=== PATIENT | male | born 1960 | race Caucasian/White ===

== ENCOUNTER → 2016-08-11 | Outpatient (CLI) | payer MEDICARE, MEDICAID ==
[~2016-08-11] MED LIST: ADVAIR 250/501 EA INH; ANAPROX DS550 MG PO; ARTHRITIS MED; EPI-PEN1 MG/ML MR; LASIX20 MG PO; MOTRIN800 MG PO; PREDNISONE20 M1 PO; PROAIR HFA0.09 MG/AC; ROBAXIN500 MG PO; SKELAXIN800 M1 PO; STOMACH MED; TRAMADOL HCL50 MG PO; VICO75300 PO; VOLTAREN50 M1 PO
== END | disposition home or self-care (01) ==
LOC: RAD 15:07
DX: M81.0 Age-related osteoporosis without current pathological fracture (principal); M25.552 Pain in left hip; M25.572 Pain in left ankle and joints of left foot

== ENCOUNTER 2016-08-16 16:27 | Emergency (ER) | payer MEDICARE, MEDICAID ==
[~2016-08-16] VITALS: Ht 175.2 cm; Wt 59.0 kg
[~2016-08-16 16:27] MED LIST changes: -PREDNISONE20 M1 PO; -SKELAXIN800 M1 PO
[2016-08-16 17:18] LABS: BASO % 0.4 % (0.0-1.0); EOS # 0.1 10*3/uL (0.0-0.4); EOS % 1.4 % (1.0-4.0); HEMATOCRIT 35.6 % (42.0-52.0); HEMOGLOBIN 12.2 g/dl (14.0-18.0); LYMPH # 2.2 10*3/uL (1.3-4.4); LYMPH % 24.4 % (27.0-41.0); MEAN CELL VOLUME 87.3 fl (80.0-94.0); MEAN CORPUSCULAR HGB 29.9 pg (27.0-31.0); MEAN CORPUSCULAR HGB CONC 34.3 g/dl (33.0-37.0); MEAN PLATELET VOLUME 9.3 fl (9.6-12.3); MONO # 0.8 10*3/uL (0.1-1.0); MONO % 8.9 % (3.0-9.0); NEUT # 5.8 10*3/uL (2.3-7.9); NEUT % 64.7 % (47.0-73.0); PLATELET COUNT AUTOMATED 211 10*3/uL (130-400); RED BLOOD COUNT 4.08 10*6/uL (4.50-5.90); RED CELL DISTRI WIDTH 13.1 % (0-14.5)
[2016-08-16 17:32] LABS: ALBUMIN 3.7 gm/dl (3.1-4.5); ALKALINE PHOSPHATASE 62 U/L (45-117); BILIRUBIN, TOTAL 0.4 mg/dl (0.2-1.0); BUN 14 mg/dl (7-24); C-REACTIVE PROTEIN 4.93 MG/DL (0-0.3); CARBON DIOXIDE 26 mmol/L (21-32); CHLORIDE 97 mmol/L (98-107); EST GLOM FILT AFRICAN AMERICAN > 60 ml/min; GLUCOSE 72 mg/dL (65-99); POTASSIUM 4.2 mmol/L (3.5-5.1); SGOT/AST 47 IU/L (3-35); SGPT/ALT 101 U/L (12-78); SODIUM 133 mmol/L (136-145); TOTAL PROTEIN 7.7 gm/dL (6.4-8.2)
[2016-08-16] MEDS ORDERED: PREDNISONE20 M1 PO (19:47)
[2016-08-16] MEDS ORDERED: SKELAXIN800 M1 PO (19:47)
== END 2016-08-16 20:06 | disposition home or self-care (01) ==
LOC: ED 16:27
PROVIDERS: Internal Medicine
DX: M50.320 Other cervical disc degeneration, mid-cervical region, unspecified level (principal); M54.32 Sciatica, left side; M51.36 Other intervertebral disc degeneration, lumbar region; F17.200 Nicotine dependence, unspecified, uncomplicated

== ENCOUNTER → 2016-08-18 | Outpatient (CLI) | payer MEDICARE, MEDICAID ==
[~2016-08-18] MED LIST changes: +PREDNISONE20 M1 PO; +SKELAXIN800 M1 PO
== END | disposition home or self-care (01) ==
LOC: RAD 03:06
DX: M81.0 Age-related osteoporosis without current pathological fracture (principal); M25.552 Pain in left hip; E55.9 Vitamin D deficiency, unspecified; Z85.828 Personal history of other malignant neoplasm of skin; Z87.891 Personal history of nicotine dependence

== ENCOUNTER 2016-12-08 09:49 | Emergency (ER) | payer MEDICARE, MEDICAID ==
[~2016-12-08] VITALS: Ht 175.2 cm; Wt 62.1 kg
[2016-12-08] MEDS ORDERED: OMEPRAZOLE D/R20 MG PO (09:58)
[2016-12-08] MEDS ORDERED: TRAMADOL HCL50 MG PO (09:59)
[2016-12-08] MEDS ORDERED: ACETAMINOPHEN-H1 TA2 PO (09:59)
[2016-12-08] MEDS ORDERED: ZESTRIL10 MG PO (10:00)
[2016-12-08] MEDS ORDERED: LASIX40 MG PO (10:00)
[2016-12-08] MEDS ORDERED: LODINE400 M1 PO (10:01)
[2016-12-08 10:19] LABS: BASO % 0.4 % (0.0-1.0); EOS # 0.1 10*3/uL (0.0-0.4); EOS % 0.9 % (1.0-4.0); HEMATOCRIT 38.1 % (42.0-52.0); HEMOGLOBIN 12.3 g/dl (14.0-18.0); LYMPH # 2.3 10*3/uL (1.3-4.4); LYMPH % 23.3 % (27.0-41.0); MEAN CELL VOLUME 91.6 fl (80.0-94.0); MEAN CORPUSCULAR HGB 29.6 pg (27.0-31.0); MEAN CORPUSCULAR HGB CONC 32.3 g/dl (33.0-37.0); MEAN PLATELET VOLUME 9.3 fl (9.6-12.3); MONO # 0.6 10*3/uL (0.1-1.0); MONO % 6.1 % (3.0-9.0); NEUT # 6.7 10*3/uL (2.3-7.9); PLATELET COUNT AUTOMATED 255 10*3/uL (130-400); RED BLOOD COUNT 4.16 10*6/uL (4.50-5.90); RED CELL DISTRI WIDTH 13.2 % (0-14.5); WHITE BLOOD COUNT 9.7 10*3/uL (4.8-10.8)
[2016-12-08 10:25] LABS: BILIRUBIN NEGATIVE (NEGATIVE); BLOOD NEGATIVE (NEGATIVE); CLARITY SL CLOUDY (CLEAR); COLOR YELLOW (YELLOW); GLUCOSE NEGATIVE (NEGATIVE); KETONE NEGATIVE (NEGATIVE); LEUKO ESTERASE NEGATIVE (NEGATIVE); NITRITE NEGATIVE (NEGATIVE); PROTEIN NEGATIVE (NEGATIVE); UROBILINOGEN 0.2 E.U./dl (0.2-1.0)
[2016-12-08 10:34] LABS: ALBUMIN 3.4 gm/dl (3.1-4.5); ALKALINE PHOSPHATASE 73 U/L (45-117); BILIRUBIN, TOTAL 0.4 mg/dl (0.2-1.0); BUN 11 mg/dl (7-24); CARBON DIOXIDE 27 mmol/L (21-32); CHLORIDE 103 mmol/L (98-107); EST GLOM FILT AFRICAN AMERICAN > 60 ml/min; GLUCOSE 101 mg/dL (65-99); POTASSIUM 4.1 mmol/L (3.5-5.1); SGOT/AST 23 IU/L (3-35); SGPT/ALT 21 U/L (12-78); SODIUM 139 mmol/L (136-145); TOTAL PROTEIN 7.3 gm/dL (6.4-8.2)
[2016-12-08 10:36] LABS: EPITHELIAL CELLS 0-2; URINE REFLEX COMMENT NO (NO); WBC 0-2 wbc/hpf (0-5)
[2016-12-08] MEDS ORDERED: PREDNISONE20 M1 PO (12:50)
[2016-12-08] MEDS ORDERED: CYCLOBENZAPRINE10 MG PO (12:50)
== END 2016-12-08 13:59 | disposition home or self-care (01) ==
LOC: ED 09:49
PROVIDERS: Registered Nurse
DX: M54.16 Radiculopathy, lumbar region (principal); F17.210 Nicotine dependence, cigarettes, uncomplicated; Z79.899 Other long term (current) drug therapy; Z98.890 Other specified postprocedural states

== ENCOUNTER → 2017-03-15 | Outpatient (CLI) | payer MEDICARE, MEDICAID ==
[~2017-03-15] MED LIST changes: +ACETAMINOPHEN-H1 TA2 PO; +CYCLOBENZAPRINE10 MG PO; +LASIX40 MG PO; +LODINE400 M1 PO; +OMEPRAZOLE D/R20 MG PO; +ZESTRIL10 MG PO
== END | disposition home or self-care (01) ==
LOC: RAD 09:42
DX: M47.817 Spondylosis without myelopathy or radiculopathy, lumbosacral region (principal); M43.16 Spondylolisthesis, lumbar region; M48.06 Spinal stenosis, lumbar region; M41.86 Other forms of scoliosis, lumbar region

== ENCOUNTER → 2017-05-31 | Outpatient (CLI) | payer MEDICARE, MEDICAID ==
[2017-05-31 10:53] LABS: BASO % 0.5 % (0.0-1.0); EOS # 0.1 10*3/uL (0.0-0.4); EOS % 1.2 % (1.0-4.0); HEMATOCRIT 38.2 % (42.0-52.0); HEMOGLOBIN 12.5 g/dl (14.0-18.0); LYMPH # 1.6 10*3/uL (1.3-4.4); LYMPH % 22.2 % (27.0-41.0); MEAN CELL VOLUME 90.5 fl (80.0-94.0); MEAN CORPUSCULAR HGB 29.6 pg (27.0-31.0); MEAN CORPUSCULAR HGB CONC 32.7 g/dl (33.0-37.0); MEAN PLATELET VOLUME 9.5 fl (9.6-12.3); MONO # 0.6 10*3/uL (0.1-1.0); PLATELET COUNT AUTOMATED 230 10*3/uL (130-400); RED BLOOD COUNT 4.22 10*6/uL (4.50-5.90); RED CELL DISTRI WIDTH 13.4 % (0-14.5); WHITE BLOOD COUNT 7.4 10*3/uL (4.8-10.8)
[2017-05-31 11:28] LABS: ALBUMIN 3.6 gm/dl (3.1-4.5); ALKALINE PHOSPHATASE 63 U/L (45-117); BUN 9 mg/dl (7-24); CHLORIDE 103 mmol/L (98-107); CHOLESTEROL 191 mg/dL (<200); CREATININE 0.91 mg/dL (0.70-1.30); HDL CHOLESTEROL 59 mg/dl (40-60); LDL CHOLESTEROL 116 mg/dL (9-159); POTASSIUM 4.6 mmol/L (3.5-5.1); SGOT/AST 21 IU/L (3-35); SGPT/ALT 28 U/L (12-78); SODIUM 137 mmol/L (136-145); TOTAL PROTEIN 7.5 gm/dL (6.4-8.2); TRIGLYCERIDES 79 mg/dl (<150); VLDL CHOLESTEROL 16 mg/dL (6-40)
[2017-05-31 11:35] LABS: THYROID STIM HORMONE (HS) 0.805 uIU/ml (0.358-4.75)
== END ==
LOC: LAB 10:36
PROVIDERS: Internal Medicine
DX: Z12.5 Encounter for screening for malignant neoplasm of prostate (principal); I10 Essential (primary) hypertension; E78.00 Pure hypercholesterolemia, unspecified; R35.1 Nocturia

== ENCOUNTER 2019-12-06 14:58 | Inpatient (IN) | payer MEDICARE ==
[~2019-12-06] VITALS: Ht 175.3 cm; Wt 62.4 kg
[~2019-12-06 14:58] MED LIST changes: -PROAIR HFA0.09 MG/AC; +PROAIR HFA8.5 GM INH
[2019-12-06 15:14] VITALS: BP 148/76
--- NOTE | 2019-12-06 16:00 | NUR ---
PT RESTING IN BED WITH NO ACUTE DISTRESS
[2019-12-06 16:29] LABS: ALBUMIN 3.6 gm/dl (3.1-4.5); ALKALINE PHOSPHATASE 79 U/L (45-117); BUN 11 mg/dl (7-24); CHLORIDE 93 mmol/L (98-107); CREATININE 0.59 mg/dL (0.70-1.30); POTASSIUM 4.1 mmol/L (3.5-5.1); SGOT/AST 24 IU/L (3-35); SGPT/ALT 32 U/L (12-78); SODIUM 128 mmol/L (136-145); TOTAL PROTEIN 7.5 gm/dL (6.4-8.2)
[2019-12-06 17:00] LABS: BASO # 0.1 10*3/uL (0.0-0.1); BASO % 0.7 % (0.0-1.0); EOS # 0.3 10*3/uL (0.0-0.4); EOS % 2.9 % (1.0-4.0); HEMATOCRIT 36.3 % (42.0-52.0); LYMPH # 1.9 10*3/uL (1.3-4.4); LYMPH % 21.3 % (27.0-41.0); MEAN CELL VOLUME 85.6 fl (80.0-94.0); MEAN CORPUSCULAR HGB 29.2 pg (27.0-31.0); MEAN CORPUSCULAR HGB CONC 34.2 g/dl (33.0-37.0); MEAN PLATELET VOLUME 9.7 fl (9.6-12.3); MONO # 0.8 10*3/uL (0.1-1.0); MONO % 8.8 % (3.0-9.0); NEUT # 5.9 10*3/uL (2.3-7.9); NEUT % 66.1 % (47.0-73.0); PLATELET COUNT AUTOMATED 272 10*3/uL (130-400); RED BLOOD COUNT 4.24 10*6/uL (4.50-5.90); RED CELL DISTRI WIDTH 12.7 % (0-14.5)
--- NOTE | 2019-12-06 18:30 | NUR ---
Time: 1829 A 59 year old MALE admitted to 5E under services of YURY SUAREZ DO. Pt. arrived via bed from ER. Chief complaint: CELLULITIS OF RIGHT HAND. DEMARCO STONE
[2019-12-06 18:49] VITALS: BP 167/82
[2019-12-06 20:00] VITALS: BP 152/78
--- NOTE | 2019-12-06 20:00 | NUR ---
RESTING IN BED WITH NO ACUTE DISTRESS NOTED. RESPIRATIONS EASY. LUNGS DIMINISHED WITH SCATTERED WHEEZES. PULSE OX 100% RA. SMOKER'S COUGH. RIGHT HAND SLIGHTLY RED AND EDEMATOUS. CALL LIGHT WITHIN REACH. NO VOICED COMPLAINTS
--- NOTE | 2019-12-06 22:12 | NUR ---
MEDIACTED WITH NORCO AND RESTORIL PER PRN ORDER FOR COMPLAINTS OF RIGHT HAND PAIN RATING AN 8 AND TO ASSIST WITH SLEEP. CALL LIGHT WITHIN REACH. WILL MONITOR
--- NOTE | 2019-12-06 23:00 | NUR ---
EARLIER MEDS APPEAR EFFECTIVE. SLEEPING. RESPIRATIONS EASY. CALL LIGHT WITHIN REACH
[2019-12-07] VITALS: BP 152/78
--- NOTE | 2019-12-07 | NUR ---
SLEEPING. NO DISTRESS NOTED. RESPIRATIONS EASY. VSS. CALL LIGHT WITHIN REACH
--- NOTE | 2019-12-07 02:00 | NUR ---
24 HR chart check completed.
--- NOTE | 2019-12-07 05:17 | NUR ---
MEDICATED WITH NORCO PER PRN ORDER FOR COMPLAINTS OF RIGHT HAND PAIN RATING A 6. RIGHT HAND REMAINS SLIGHTLY RED AND EDEMATOUS. CALL LIGHT WITHIN REACH. WILL MONITOR FOR EFFECTIVENESS
--- NOTE | 2019-12-07 06:00 | NUR ---
EARLIER MEDS APPEAR EFFECTIVE. SLEEPING. RESPIRATIONS EASY. CALL LIGHT WITHIN REACH
[2019-12-07 06:17] LABS: BASO % 0.7 % (0.0-1.0); EOS # 0.3 10*3/uL (0.0-0.4); EOS % 4.5 % (1.0-4.0); HEMATOCRIT 34.8 % (42.0-52.0); LYMPH # 1.9 10*3/uL (1.3-4.4); LYMPH % 30.8 % (27.0-41.0); MEAN CELL VOLUME 85.7 fl (80.0-94.0); MEAN CORPUSCULAR HGB 29.1 pg (27.0-31.0); MEAN CORPUSCULAR HGB CONC 33.9 g/dl (33.0-37.0); MEAN PLATELET VOLUME 9.3 fl (9.6-12.3); MONO # 0.6 10*3/uL (0.1-1.0); MONO % 9.8 % (3.0-9.0); NEUT # 3.3 10*3/uL (2.3-7.9); PLATELET COUNT AUTOMATED 233 10*3/uL (130-400); RED BLOOD COUNT 4.06 10*6/uL (4.50-5.90); RED CELL DISTRI WIDTH 12.5 % (0-14.5)
[2019-12-07 06:47] LABS: ALBUMIN 2.8 gm/dl (3.1-4.5); BUN 12 mg/dl (7-24); CHLORIDE 97 mmol/L (98-107); CHOLESTEROL 155 mg/dL (<200); CREATININE 0.65 mg/dL (0.70-1.30); POTASSIUM 4.1 mmol/L (3.5-5.1); SGOT/AST 19 IU/L (3-35); SGPT/ALT 27 U/L (12-78); SODIUM 131 mmol/L (136-145); TOTAL PROTEIN 6.1 gm/dL (6.4-8.2); TRIGLYCERIDES 52 mg/dl (<150); VLDL CHOLESTEROL 10 mg/dL (6-40)
[2019-12-07 06:53] LABS: ALKALINE PHOSPHATASE 55 U/L (45-117); HDL CHOLESTEROL 62 mg/dl (40-60); LDL CHOLESTEROL 83 mg/dL (9-159)
[2019-12-07 07:33] LABS: VITAMIN D, 25-HYDROXY 29.1 ng/mL (30-100)
[2019-12-07 08:00] VITALS: BP 137/73
--- NOTE | 2019-12-07 09:00 | NUR ---
Woodworking Bench Carpenter in to talk to patient. Patient states lives at home with his girlfriend. There are 0 steps in the home. Physician: no family physician as his PCP Dr. Katiuska Turner moved out of the area Pharmacy: [facility] Home health services: none Patient's level of ADLs: INDEPENDENT Patient has working utilities: yes DME: none Follow-up physician's appointment after d/c: will be made by the hospitalist nurse director upon discharge Does patient want to access PORTAL?: no Discharge plan discussed with patient. He lives in a mobile home with his girlfriend. He is independent in his ADLs and ambulation. Discussed home health care services and he denies any home needs at this time. When medically stable he will be discharged to home. He states his brother will provide transportation on discharge. PRISCILLA DUNCAN
--- NOTE | 2019-12-07 09:11 | NUR ---
PT MEDICATED WITH PO NORCO PER PRN ORDER FOR C/O RIGHT HAND PAIN. RATES PAIN 12/31. WILL MONITOR EFFECTIVENESS. CALL LIGHT WITHIN REACH.
--- NOTE | 2019-12-07 09:15 | NUR ---
PT MEDICATED WITH PO NORCO PER PRN ORDER FOR C/O RIGHT HAND PAIN. RATES PAIN 01/30. WILL MONITOR EFFECTIVENESS. CALL LIGHT WITHIN REACH.
--- NOTE | 2019-12-07 10:11 | NUR ---
NORCO RELIEVING PAIN PER PT. WILL CONTINUE TO MONITOR.
--- NOTE | 2019-12-07 10:48 | NUR ---
IN TO SEE PATIENT.
[2019-12-07 12:00] VITALS: BP 134/69
--- NOTE | 2019-12-07 13:43 | NUR ---
PT REQUESTED AND RECEIVED PO NORCO PER PRN ORDER FOR C/O RIGHT HAND PAIN. RATES PAIN 10. WILL MONITOR EFFECTIVENESS.
--- NOTE | 2019-12-07 14:43 | NUR ---
MICHAEL RELIEVING PAIN PER PT. WILL CONTINUE TO MONITOR. CALL LIGHT WITHIN REACH.
[2019-12-07 16:00] VITALS: BP 144/74
--- NOTE | 2019-12-07 17:47 | NUR ---
MEDICATED WITH PRN PO NORCO FOR RIGHT ARM/HAND PAIN.
--- NOTE | 2019-12-07 18:41 | NUR ---
PRN PO NORCO EFFECTIVE, PER PATIENT.
[2019-12-07 20:00] VITALS: BP 139/70
--- NOTE | 2019-12-07 20:50 | NUR ---
PATIENT MEDICATED WITH TYLENOL FOR C/O RUE PAIN 11/30. WILL MONITOR
--- NOTE | 2019-12-07 21:50 | NUR ---
TYLENOL SOMEWHAT EFFECTIVE. WILL MEDICATED WITH NORCO
--- NOTE | 2019-12-07 21:56 | NUR ---
PATIENT MEDICATED WITH NORCO FOR C/O RUE PAIN 12/31. WILL MONITOR
--- NOTE | 2019-12-07 22:56 | NUR ---
NORCO EFFECTIVE FOR PAIN
[2019-12-08] VITALS: BP 156/72
--- NOTE | 2019-12-08 03:09 | NUR ---
PATIENT MEDICATED WITH NORCO FOR C/O 7/10 RUE PAIN. WILL MONITOR
--- NOTE | 2019-12-08 03:20 | NUR ---
IV started left UPPER arm with #20 protective cath after 0 attempts. Site prepped with Chloroprep. Sterile dressing applied. Patient tolerated procedure well. JERMAINE CHEUNG
--- NOTE | 2019-12-08 03:20 | NUR ---
Hep Lock discontinued L ARM. Site symptomatic, LEAKING AND JOSE. Pressure applied. Sterile dressing applied. JERMAINE CHEUNG
--- NOTE | 2019-12-08 04:09 | NUR ---
NORCO EFFECTIVE FOR PAIN
[2019-12-08 06:23] LABS: BASO # 0.1 10*3/uL (0.0-0.1); BASO % 0.9 % (0.0-1.0); EOS # 0.3 10*3/uL (0.0-0.4); EOS % 4.6 % (1.0-4.0); HEMATOCRIT 35.1 % (42.0-52.0); LYMPH % 29.7 % (27.0-41.0); MEAN CELL VOLUME 85.6 fl (80.0-94.0); MEAN CORPUSCULAR HGB 28.8 pg (27.0-31.0); MEAN CORPUSCULAR HGB CONC 33.6 g/dl (33.0-37.0); MEAN PLATELET VOLUME 9.5 fl (9.6-12.3); MONO # 0.6 10*3/uL (0.1-1.0); MONO % 9.2 % (3.0-9.0); NEUT # 3.8 10*3/uL (2.3-7.9); NEUT % 55.3 % (47.0-73.0); PLATELET COUNT AUTOMATED 276 10*3/uL (130-400); RED CELL DISTRI WIDTH 12.5 % (0-14.5); WHITE BLOOD COUNT 6.8 10*3/uL (4.8-10.8)
[2019-12-08 06:55] LABS: BUN 9 mg/dl (7-24); CHLORIDE 101 mmol/L (98-107); POTASSIUM 3.9 mmol/L (3.5-5.1); SODIUM 133 mmol/L (136-145)
[2019-12-08 06:56] LABS: CREATININE 0.68 mg/dL (0.70-1.30)
[2019-12-08 08:00] VITALS: BP 146/67
--- NOTE | 2019-12-08 08:20 | NUR ---
PATIENT REFUSED LOVENOX INJECTION DESPITE NURSING EDUCATION.
--- NOTE | 2019-12-08 08:21 | NUR ---
PT REQUESTED AND RECEIVED PO NORCO PER PRN ORDER FOR C/O RIGHT HAND PAIN/DISCOMFORT. RATES PAIN 7/10. DECREASED SWELLING NOTED TO RIGHT HAND. WILL MONITOR EFFECTIVENESS. CALL LIGHT WITHIN REACH. VSS.
--- NOTE | 2019-12-08 09:21 | NUR ---
NORCO RELIEVING PAIN PER PT. WILL CONTINUE TO MONITOR.
[2019-12-08 12:00] VITALS: BP 135/64
--- NOTE | 2019-12-08 12:23 | NUR ---
PT REQUESTED NORCO PO PER PRN ORDER FOR C/O RIGHT HAND PAIN/DISCOMFORT. RATES PAIN 10. WILL MONITOR EFFECTIVENESS.
--- NOTE | 2019-12-08 13:23 | NUR ---
NORCO RELIEVING PAIN PER PT. WILL CONTINUE TO MONITOR.
[2019-12-08 16:00] VITALS: BP 139/74
--- NOTE | 2019-12-08 16:32 | NUR ---
PT REQUESTED PO NORCO PER PRN ORDER FOR C/O BACK PAIN. CHRONIC PAIN PER PT. RATES PAIN 03/02. WILL MONITOR EFFECTIVENESS. VSS. CALL LIGHT WITHIN REACH.
--- NOTE | 2019-12-08 17:32 | NUR ---
NORCO RELIEVING BACK PAIN PER PT. WILL CONTINUE TO MONITOR.
--- NOTE | 2019-12-08 19:00 | NUR ---
PATIENT VOICED NO COMPLAINTS AT THIS TIME. NO OVERT DISTRESS NOTED. CALL LIGTH WITHIN REACH
[2019-12-08 20:00] VITALS: BP 136/61
--- NOTE | 2019-12-08 21:07 | NUR ---
PATIENT MEDICATED WITH NORCO AND RESTORIL FOR C/O PAIN 01/30 RUE/BACK AND INSOMNIA. WILL MONITOR
--- NOTE | 2019-12-08 22:07 | NUR ---
NORCO & RESTORIL EFFECTIVE PAIN AND INSOMNIA
[2019-12-09] VITALS: BP 138/71
--- NOTE | 2019-12-09 03:03 | NUR ---
PATIENT MEDICATED WITH NORCO FOR C/O 01/30 BACK PAIN. WILL MONITOR
--- NOTE | 2019-12-09 04:03 | NUR ---
NORCO EFFECTIVE FOR PAIN
--- NOTE | 2019-12-09 07:30 | NUR ---
LUCILLECHELSEYALEISHA [id number] Please refer to the physician's history and physical for past medical history, comorbid conditions, and allergies. Diagnosis: CELLULITIS,HYPONATREMIA,IVDU Jimi Score: 22,LOW OR NO RISK WOUND DESCRIPTIONS: This nurse as well as Karuna Patel RN assessed patient Right hand pink and blanchable at time of assessment. No open areas noted at time of assessmnet. No drainage noted at time of assessment. Slight edema noted. Patient stated it started swelling and was up into his arm and came here on monday. Surface the patient is resting on: Isoflex SKIN PREVENTION RECOMMENDATION: 1. Pressure redistribution support surface as appropriate 2. Elevate heels 3. Remove boots/TEDS every shift and reapply 4. Head of bed 30 degrees as tolerated 5. Assess nutrition and hydration 6. Manage moisture 7. Avoid the use of containment devices while in bed 8. Use absorptive products on surfaces limit layers of linens on bed 9. Turn and reposition every 1-2 hours in bed and every 1 hour in chair as tolerated 10. Weight shifts every 15 minutes while up in chair 11. Offloading with pillows or device to keep heels elevated off bed 12. Monitor skin at least every shift 13. Inspect under medical devices twice a day WOUND TREATMENT RECOMMENDATIONS: Patient will care for this area when he returns home and doesn't wish to follow up in an outpatient setting at this time
--- NOTE | 2019-12-09 07:45 | NUR ---
MEDICATED WITH PRN NORCO FOR C/O R ARM PAIN RATED AT A 7 OUT OF 10.
[2019-12-09 08:00] VITALS: BP 136/74
--- NOTE | 2019-12-09 09:00 | NUR ---
case management visits with patient, he states he will return home with his girlfriend and denies any home needs, case management will follow
[2019-12-09] MEDS ORDERED: DOXYCYCLINE100 M3 PO (10:43)
--- NOTE | 2019-12-09 11:46 | NUR ---
PATIENT DISCHARGED TO HOME WITH BELONGINGS.
--- NOTE | 2019-12-11 00:48 | NUR ---
LAB CALLED WITH CRITICAL RESULTS OF PATIENTS BLOOD CULTURES SAYING GRAM NEGATIVE BACILLI. DR. BRYSON MADE AWARE
== END 2019-12-09 11:53 | disposition home or self-care (01) | DRG 603 ==
LOC: ED 14:58 → EDHOLD 17:38 → 5E 17:38
PROVIDERS: Internal Medicine; Physician Assistant; Student in an Organized Health Care Education/Training Program; ADMIT Emergency Medicine
DX: L03.113 Cellulitis of right upper limb (principal); E87.1 Hypo-osmolality and hyponatremia; E44.0 Moderate protein-calorie malnutrition; Z68.1 Body mass index [BMI] 19.9 or less, adult; F19.90 Other psychoactive substance use, unspecified, uncomplicated; D64.9 Anemia, unspecified; E87.8 Other disorders of electrolyte and fluid balance, not elsewhere classified; R79.82 Elevated C-reactive protein (CRP); F17.210 Nicotine dependence, cigarettes, uncomplicated; M51.16 Intervertebral disc disorders with radiculopathy, lumbar region; J43.9 Emphysema, unspecified; J45.909 Unspecified asthma, uncomplicated; I10 Essential (primary) hypertension; E78.5 Hyperlipidemia, unspecified; E55.9 Vitamin D deficiency, unspecified; E86.0 Dehydration; Z71.6 Tobacco abuse counseling; Z82.49 Family history of ischemic heart disease and other diseases of the circulatory system; Z80.0 Family history of malignant neoplasm of digestive organs; Z82.0 Family history of epilepsy and other diseases of the nervous system

== ENCOUNTER 2020-05-08 00:58 | Emergency (ER) | payer MEDICARE ==
[~2020-05-08] VITALS: Ht 175.2 cm; Wt 61.6 kg
[~2020-05-08 00:58] MED LIST changes: +DOXYCYCLINE100 M3 PO
[2020-05-08 01:30] LABS: BASO # 0.1 10*3/uL (0.0-0.1); BASO % 0.4 % (0.0-1.0); EOS # 0.1 10*3/uL (0.0-0.4); HEMATOCRIT 39.6 % (42.0-52.0); LYMPH # 2.7 10*3/uL (1.3-4.4); LYMPH % 20.4 % (27.0-41.0); MEAN CORPUSCULAR HGB 28.4 pg (27.0-31.0); MEAN CORPUSCULAR HGB CONC 31.6 g/dl (33.0-37.0); MEAN PLATELET VOLUME 9.5 fl (9.6-12.3); MONO # 1.1 10*3/uL (0.1-1.0); MONO % 8.4 % (3.0-9.0); NEUT # 9.1 10*3/uL (2.3-7.9); NEUT % 69.6 % (47.0-73.0); PLATELET COUNT AUTOMATED 337 10*3/uL (130-400); WHITE BLOOD COUNT 13.1 10*3/uL (4.8-10.8)
[2020-05-08 01:38] LABS: URINE AMPHETAMINES < 1000 (1000ng/ml); URINE BARBITURATES < 200 (200ng/ml); URINE BENZODIAZEPINES < 200 (200ng/ml); URINE CANNABINOIDS (THC) < 50 (50ng/ml); URINE COCAINE < 300 (300ng/ml); URINE METHADONE < 300 (300ng/ml); URINE OPIATES < 300 (300ng/ml)
[2020-05-08 01:40] LABS: URINE PHENCYCLIDINE < 25 (25ng/ml)
[2020-05-08 01:45] LABS: ALBUMIN 3.6 gm/dl (3.1-4.5); ALKALINE PHOSPHATASE 69 U/L (45-117); BUN 17 mg/dl (7-24); CHLORIDE 101 mmol/L (98-107); CREATININE 0.91 mg/dL (0.70-1.30); POTASSIUM 3.8 mmol/L (3.5-5.1); SGOT/AST 26 IU/L (3-35); SGPT/ALT 35 U/L (12-78); SODIUM 133 mmol/L (136-145); TOTAL PROTEIN 7.6 gm/dL (6.4-8.2)
== END 2020-05-08 05:08 | disposition left against medical advice (07) ==
LOC: ED 00:58
PROVIDERS: Emergency Medicine
DX: R55 Syncope and collapse (principal); J44.9 Chronic obstructive pulmonary disease, unspecified; E78.5 Hyperlipidemia, unspecified; I10 Essential (primary) hypertension; F17.210 Nicotine dependence, cigarettes, uncomplicated

== ENCOUNTER 2020-05-31 18:36 | Inpatient (IN) | payer MEDICARE ==
[~2020-05-31] VITALS: Ht 175.3 cm; Wt 61.5 kg
[2020-05-31 18:36] VITALS: BP 98/50
[2020-05-31 19:39] LABS: BASO % 0.3 % (0.0-1.0); EOS % 0.1 % (1.0-4.0); LYMPH # 0.8 10*3/uL (1.3-4.4); LYMPH % 6.4 % (27.0-41.0); MEAN CELL VOLUME 88.1 fl (80.0-94.0); MEAN CORPUSCULAR HGB 28.4 pg (27.0-31.0); MEAN CORPUSCULAR HGB CONC 32.3 g/dl (33.0-37.0); MEAN PLATELET VOLUME 9.5 fl (9.6-12.3); MONO # 1.1 10*3/uL (0.1-1.0); MONO % 8.6 % (3.0-9.0); NEUT # 10.8 10*3/uL (2.3-7.9); NEUT % 84.1 % (47.0-73.0); PLATELET COUNT AUTOMATED 226 10*3/uL (130-400); RED BLOOD COUNT 3.52 10*6/uL (4.50-5.90); RED CELL DISTRI WIDTH 13.2 % (0-14.5); WHITE BLOOD COUNT 12.9 10*3/uL (4.8-10.8)
[2020-05-31 19:56] LABS: ALKALINE PHOSPHATASE 55 U/L (45-117); BUN 12 mg/dl (7-24); CHLORIDE 97 mmol/L (98-107); CREATININE 0.81 mg/dL (0.70-1.30); POTASSIUM 3.6 mmol/L (3.5-5.1); SGOT/AST 30 IU/L (3-35); SGPT/ALT 30 U/L (12-78); SODIUM 130 mmol/L (136-145); TOTAL PROTEIN 6.2 gm/dL (6.4-8.2)
[2020-05-31 19:57] LABS: ACETAMINOPHEN (TYLENOL) < 5.0 ug/ml (10-30)
[2020-05-31 20:01] LABS: ETHYL ALCOHOL < 3.0 mg/dl (<3)
[2020-05-31 20:11] VITALS: BP 107/54
[2020-05-31 20:15] LABS: BILIRUBIN Negative (Negative); BLOOD Negative (Negative); CLARITY Clear (Clear); COLOR Yellow (Yellow); GLUCOSE Negative (Negative); KETONE Negative (Negative); LEUKO ESTERASE Negative (Negative); NITRITE Negative (Negative); SPECIFIC GRAVITY 1.015 (1.001-1.030)
[2020-05-31 20:24] LABS: URINE AMPHETAMINES < 1000 (1000ng/ml); URINE BARBITURATES < 200 (200ng/ml); URINE BENZODIAZEPINES > 200 (200ng/ml); URINE CANNABINOIDS (THC) < 50 (50ng/ml); URINE COCAINE < 300 (300ng/ml); URINE METHADONE < 300 (300ng/ml); URINE OPIATES < 300 (300ng/ml)
--- NOTE | 2020-05-31 20:25 | NUR ---
PATIENT IN BED AOX3 NO DISTRESS NOTED. AWAKE AND TALKING. RESP EASY AND NONLABORED. VSS. RN WILL CONT TO MONITOR
[2020-05-31 20:30] LABS: BACTERIA TRACE; MUCOUS 1+; RBC 0-2 rbc/hpf (0-2); WBC 0-2 wbc/hpf (0-5)
[2020-05-31 20:33] LABS: URINE PHENCYCLIDINE < 25 (25ng/ml)
--- NOTE | 2020-05-31 21:30 | NUR ---
MULTIPLE CALLS FROM PATIENTS FAMILY CALL SENT TO PATIENTS ROOM TO LET PATIENT TALK WITH THE FAMILY. ITALO MILLER RN.
[2020-05-31 21:31] VITALS: BP 97/56
[2020-05-31 22:03] VITALS: BP 105/54
[2020-05-31 22:52] VITALS: BP 94/61
[2020-05-31 23:52] VITALS: BP 97/61
[2020-06-01 00:50] VITALS: BP 124/66
--- NOTE | 2020-06-01 00:50 | NUR ---
A 59, admitted to 4E, under the services of KOBY Harmon DO with a diagnosis of SYCOPE/COLLAPSE. Chief complaint is SYNCOPE. Patient arrived via bed from ER. Monitor applied. Initial assessment completed. Vital signs taken and recorded. KOBY HARMON DO notified of admission to the unit. Orders received. See assessment for past medical history, medications and allergies. Patient oriented to unit. Clothing/patient valuable form completed. JERMAINE CHEUNG
--- NOTE | 2020-06-01 01:18 | NUR ---
MADE AWARE THAT PATIENT HOME MED ARE VERIFIED. PATIENT SATES OBJECTIVELY HAVING FEVERS FOR PAST TWO DAYS AND FINALLY BROKE LAST NIGHT, NO NO ORDERS. INFORMED THAT PATIENT HAS A COUGH THATS NOT NEW/WORSENING, SMOKERS COUGHT. PATIENT REQUESTING NICOTINE PATCH, DOCTOR STATED OK TO PLACED ORDER
--- NOTE | 2020-06-01 02:27 | NUR ---
PATIENT SLEEPING AT THIS TIME. NICOTINE PATCH TIME CAHNGED TO 1000
[2020-06-01 06:28] LABS: BASO # 0.1 10*3/uL (0.0-0.1); BASO % 0.4 % (0.0-1.0); EOS # 0.1 10*3/uL (0.0-0.4); EOS % 0.6 % (1.0-4.0); HEMATOCRIT 31.7 % (42.0-52.0); LYMPH # 1.9 10*3/uL (1.3-4.4); LYMPH % 15.3 % (27.0-41.0); MEAN CELL VOLUME 91.1 fl (80.0-94.0); MEAN CORPUSCULAR HGB 29.3 pg (27.0-31.0); MEAN CORPUSCULAR HGB CONC 32.2 g/dl (33.0-37.0); MEAN PLATELET VOLUME 9.3 fl (9.6-12.3); MONO # 1.1 10*3/uL (0.1-1.0); MONO % 8.7 % (3.0-9.0); NEUT # 9.4 10*3/uL (2.3-7.9); NEUT % 74.8 % (47.0-73.0); PLATELET COUNT AUTOMATED 210 10*3/uL (130-400); RED BLOOD COUNT 3.48 10*6/uL (4.50-5.90); RED CELL DISTRI WIDTH 13.3 % (0-14.5); WHITE BLOOD COUNT 12.6 10*3/uL (4.8-10.8)
[2020-06-01 07:04] LABS: BUN 11 mg/dl (7-24); CHLORIDE 103 mmol/L (98-107); CREATININE 0.69 mg/dL (0.70-1.30); POTASSIUM 4.5 mmol/L (3.5-5.1); SODIUM 136 mmol/L (136-145)
--- NOTE | 2020-06-01 07:45 | NUR ---
PT C/O OF HEADACHE PRN TYLENOL GIVEN PER ORDER
[2020-06-01 08:00] VITALS: BP 115/62
--- NOTE | 2020-06-01 08:30 | NUR ---
PER PT TYLENOL WAS EFFECTIVE
--- NOTE | 2020-06-01 08:45 | NUR ---
PHYSICAL THERAPY Physical Therapy evaluation completed on 4th floor with full evaluation to follow. Recommend physical therapy per plan of care and home with girlfriend and f/u w upon discharge. Thank you for this referral. Ansley Diaz PT
[2020-06-01 11:50] VITALS: BP 117/71
[2020-06-01 16:03] VITALS: BP 128/76
--- NOTE | 2020-06-01 18:29 | NUR ---
Discharge instructions reviewed with patient/family. Patient receptive and verbalizes understanding. Follow-up care arranged. Written instructions given to patient/family. SHAVONNE THORPE
== END 2020-06-01 18:29 | disposition home or self-care (01) | DRG 641 ==
LOC: ED 18:36 → EDHOLD 06-01 00:08 → 4E 06-01 00:08 → EDHOLD 06-01 00:08 → 4E 06-01 00:56
PROVIDERS: Internal Medicine; Nurse Practitioner Family; ADMIT Internal Medicine; ATTEND Internal Medicine
DX: E86.0 Dehydration (principal); R65.10 Systemic inflammatory response syndrome (SIRS) of non-infectious origin without acute organ dysfunction; E44.0 Moderate protein-calorie malnutrition; E87.1 Hypo-osmolality and hyponatremia; F13.10 Sedative, hypnotic or anxiolytic abuse, uncomplicated; J44.9 Chronic obstructive pulmonary disease, unspecified; I10 Essential (primary) hypertension; E78.5 Hyperlipidemia, unspecified; F17.210 Nicotine dependence, cigarettes, uncomplicated; E55.9 Vitamin D deficiency, unspecified; Z82.49 Family history of ischemic heart disease and other diseases of the circulatory system; Z82.0 Family history of epilepsy and other diseases of the nervous system; Z79.51 Long term (current) use of inhaled steroids; Z68.20 Body mass index [BMI] 20.0-20.9, adult

== ENCOUNTER → 2020-06-30 | Outpatient (CLI) | payer MEDICARE | END | disposition home or self-care (01) | LOC: RESCLI 06-29 00:42 | PROVIDERS: ATTEND Internal Medicine | DX: I10 Essential (primary) hypertension (principal); G89.29 Other chronic pain; J43.2 Centrilobular emphysema; K21.9 Gastro-esophageal reflux disease without esophagitis ==

== ENCOUNTER → 2021-01-29 | Outpatient (CLI) | payer MEDICARE | END | disposition home or self-care (01) | LOC: RESCLI 00:38 | PROVIDERS: ATTEND Internal Medicine | DX: I10 Essential (primary) hypertension (principal); J43.2 Centrilobular emphysema; K21.9 Gastro-esophageal reflux disease without esophagitis; B18.2 Chronic viral hepatitis C; E78.5 Hyperlipidemia, unspecified; F17.200 Nicotine dependence, unspecified, uncomplicated; Z88.8 Allergy status to other drugs, medicaments and biological substances; Z98.890 Other specified postprocedural states; Z79.899 Other long term (current) drug therapy ==

== ENCOUNTER 2021-08-31 10:19 | Emergency (ER) | payer MEDICARE ==
[~2021-08-31] VITALS: Wt 65.8 kg
[2021-08-31] MEDS ORDERED: KENALOG 0.1%80 GM T (11:06)
[2021-08-31] MEDS ORDERED: PROAIR HFA8.5 GM INH (11:06)
[2021-08-31] MEDS ORDERED: SPIRIVA -- 3018 MCG INH (11:06)
== END 2021-08-31 11:11 | disposition home or self-care (01) ==
LOC: ED 10:19
DX: R21 Rash and other nonspecific skin eruption (principal); J44.9 Chronic obstructive pulmonary disease, unspecified; E78.5 Hyperlipidemia, unspecified; I10 Essential (primary) hypertension; F17.210 Nicotine dependence, cigarettes, uncomplicated; Z98.890 Other specified postprocedural states

== ENCOUNTER → 2022-06-29 | Outpatient (CLI) | payer MEDICARE ==
[~2022-06-29] MED LIST changes: +KENALOG 0.1%80 GM T; +SPIRIVA -- 3018 MCG INH
== END | disposition home or self-care (01) ==
LOC: RESCLI 01:04
PROVIDERS: ATTEND Family Medicine
DX: I10 Essential (primary) hypertension (principal); E78.00 Pure hypercholesterolemia, unspecified; H66.90 Otitis media, unspecified, unspecified ear; J43.2 Centrilobular emphysema; K21.9 Gastro-esophageal reflux disease without esophagitis; Z41.8 Encounter for other procedures for purposes other than remedying health state; Z82.49 Family history of ischemic heart disease and other diseases of the circulatory system; F17.200 Nicotine dependence, unspecified, uncomplicated; Z88.5 Allergy status to narcotic agent; Z88.9 Allergy status to unspecified drugs, medicaments and biological substances; Z91.030 Bee allergy status; Z98.890 Other specified postprocedural states; Z79.899 Other long term (current) drug therapy

== ENCOUNTER → 2022-10-03 | Outpatient (CLI) | payer MEDICARE, OTHER | END | disposition home or self-care (01) | LOC: RESCLI 01:35 | PROVIDERS: ATTEND Internal Medicine | DX: I10 Essential (primary) hypertension (principal); J43.2 Centrilobular emphysema; F17.200 Nicotine dependence, unspecified, uncomplicated; F10.90 Alcohol use, unspecified, uncomplicated; K21.9 Gastro-esophageal reflux disease without esophagitis; Z88.5 Allergy status to narcotic agent; Z88.8 Allergy status to other drugs, medicaments and biological substances; Z82.49 Family history of ischemic heart disease and other diseases of the circulatory system; Z98.890 Other specified postprocedural states; Z79.899 Other long term (current) drug therapy ==

== ENCOUNTER 2023-12-21 12:55 | Emergency (ER) | payer OTHER ==
[~2023-12-21] VITALS: Ht 175.2 cm; Wt 59.0 kg
== END 2023-12-21 13:12 | disposition left against medical advice (07) ==
LOC: ED 12:55
DX: R40.4 Transient alteration of awareness (principal); Z53.29 Procedure and treatment not carried out because of patient's decision for other reasons; I10 Essential (primary) hypertension; J44.9 Chronic obstructive pulmonary disease, unspecified; E78.5 Hyperlipidemia, unspecified; Z98.890 Other specified postprocedural states; F17.210 Nicotine dependence, cigarettes, uncomplicated

== ENCOUNTER 2024-03-04 13:47 | Emergency (ER) | payer OTHER ==
[~2024-03-04] VITALS: Ht 175.2 cm; Wt 58.1 kg
[2024-03-04 14:02] VITALS: BP 144/84
[2024-03-04] MEDS ORDERED: MOTRIN IB200 M1 PO (14:29)
[2024-03-04] MEDS ORDERED: [UNRECOGNIZED DRUG - REMARK] (14:29)
[2024-03-04] MEDS ORDERED: SODIUM CHLORIDE 0.9% 1,000 ML IV SCH (14:30)
[2024-03-04] MEDS ORDERED: AZITHROMYCIN 250 ML IV ONE (14:30)
[2024-03-04] MEDS ORDERED: Ceftriaxone Sodium 1 GM/10 ML SYR IV ONE (14:30)
[2024-03-04 14:35] LABS: HEMATOCRIT 35.5 % (42.0-52.0); MEAN CELL VOLUME 78.2 fl (80.0-94.0); MEAN CORPUSCULAR HGB 24.2 pg (27.0-31.0); MEAN PLATELET VOLUME 8.6 fl (9.6-12.3); PLATELET COUNT AUTOMATED 635 10*3/uL (130-400); RED BLOOD COUNT 4.54 10*6/uL (4.50-5.90); RED CELL DISTRI WIDTH 14.7 % (0-14.5)
[2024-03-04] MEDS ORDERED: fentaNYL CITRATE 100 MCG/2 ML VIAL IV ONE (14:35)
[2024-03-04 14:37] LABS: ACT PARTIAL THROMBO TIME 26.8 SECONDS (20.0-32.1)
[2024-03-04 14:41] LABS: MANUAL DIFF REFLEX YES
[2024-03-04 14:50] LABS: ALKALINE PHOSPHATASE 73 U/L (46-116); BUN 12 mg/dl (9-23); CHLORIDE 94 mmol/L (98-107); POTASSIUM 4.4 mmol/L (3.4-5.1); SGPT/ALT 15 U/L (5-49)
[2024-03-04 15:01] LABS: BASOPHILS 1 % (0-1); PLATELET SUFFICIENCY HIGH (NORMAL); TOTAL CELLS COUNTED 100 #CELLS
[2024-03-04 15:02] LABS: OVALOCYTES FEW
[2024-03-04] MEDS ORDERED: SODIUM CHLORIDE 0.9% 100 ML BAG IV ONE (15:10)
[2024-03-04] MEDS ORDERED: IOHEXOL 350 MG/ML 100 ML VIAL IV ONE (15:10)
[2024-03-04 16:05] VITALS: BP 145/79
[2024-03-04] MEDS ORDERED: MORPHINE Sulfate 2 MG/ML SYR IV ONE (16:30)
[2024-03-04] MEDS ORDERED: HYDROmorphONE Hydrochloride 1 MG/ML SYR IV ONE ×3 (17:20→23:35)
[2024-03-04 17:23] VITALS: BP 151/88
[2024-03-04 18:55] VITALS: BP 145/87
[2024-03-05] VITALS (10 sets, daily range): BP systolic 144–176; BP diastolic 67–93
[2024-03-05] MEDS ORDERED: HYDROmorphONE Hydrochloride 1 ML IV ONE (00:06)
[2024-03-05] MEDS ORDERED: SODIUM CHLORIDE 0.9% 1,000 ML IV ONE (01:02)
[2024-03-05] MEDS ORDERED: HYDROmorphONE Hydrochloride 0.5 MG/0.5 ML SYRINGE IV ONE (04:55)
[2024-03-05] MEDS ORDERED: HYDROmorphONE Hydrochloride 0.5 MG/0.5 ML SYRINGE ONE (05:23)
[2024-03-05] MEDS ORDERED: MORPHINE Sulfate 2 MG/ML SYR IV PRN (08:45)
[2024-03-05] MEDS ORDERED: Ceftriaxone Sodium 1 GM/10 ML SYR IV ONE (11:00)
[2024-03-05] MEDS ORDERED: AZITHROMYCIN 250 ML IV ONE (11:00)
[2024-03-05 11:43] LABS: HEMATOCRIT 34.3 % (42.0-52.0); MEAN CELL VOLUME 77.3 fl (80.0-94.0); MEAN CORPUSCULAR HGB 24.5 pg (27.0-31.0); MEAN CORPUSCULAR HGB CONC 31.8 g/dl (33.0-37.0); MEAN PLATELET VOLUME 8.4 fl (9.6-12.3); PLATELET COUNT AUTOMATED 646 10*3/uL (130-400); RED BLOOD COUNT 4.44 10*6/uL (4.50-5.90); RED CELL DISTRI WIDTH 15.1 % (0-14.5)
[2024-03-05 11:45] LABS: MANUAL DIFF REFLEX YES; WHITE BLOOD COUNT 45.4 10*3/uL (4.8-10.8)
[2024-03-05] MEDS ORDERED: Piperacillin Sodium/Tazobact 50 ML IV ONE (11:50)
[2024-03-05] MEDS ORDERED: Vancomycin Hydrochloride 250 ML IV ONE (11:50)
[2024-03-05] MEDS ORDERED: HYDROmorphONE Hydrochloride 1 MG/ML SYR IV PRN (11:55)
[2024-03-05 12:11] LABS: TOTAL CELLS COUNTED 100 #CELLS
[2024-03-05 12:12] LABS: BUN 16 mg/dl (9-23); BURR CELLS MODERATE; CHLORIDE 99 mmol/L (98-107); PLATELET SUFFICIENCY HIGH (NORMAL); POTASSIUM 4.6 mmol/L (3.4-5.1)
[2024-03-05 12:13] LABS: MICROCYTOSIS SLIGHT
== END 2024-03-05 17:15 | disposition short-term general hospital (02) ==
LOC: ED 13:47 → EDHOLD 18:18 → ED 03-05 04:03 → EDHOLD 03-05 04:03 → ED 03-05 17:15
PROVIDERS: Internal Medicine; Nurse Practitioner Family
DX: J18.9 Pneumonia, unspecified organism (principal); E87.1 Hypo-osmolality and hyponatremia; A41.9 Sepsis, unspecified organism; J90 Pleural effusion, not elsewhere classified; J44.9 Chronic obstructive pulmonary disease, unspecified; E78.5 Hyperlipidemia, unspecified; I10 Essential (primary) hypertension; D64.9 Anemia, unspecified; R07.89 Other chest pain; M79.602 Pain in left arm; F17.210 Nicotine dependence, cigarettes, uncomplicated; Z98.890 Other specified postprocedural states

== ENCOUNTER → 2024-04-24 | Outpatient (CLI) | payer OTHER ==
[~2024-04-24] MED LIST changes: +LISINOPRIL10 M1 PO; +MOTRIN IB200 M1 PO; +PANTOPRAZOLE SO20 MG PO; +Regadenoson 0.4 MG/5 ML SYR IV ONE; +Technetium Tc 99M Tetrofosmi 0.23 MG KIT IJ SCH; +WIXELA 250-501 EACH INH; +[UNRECOGNIZED DRUG - REMARK]
== END | disposition home or self-care (01) ==
LOC: CARD 04-18 09:30
PROVIDERS: ATTEND Internal Medicine Cardiovascular Disease
DX: R07.9 Chest pain, unspecified (principal); R06.00 Dyspnea, unspecified; R79.89 Other specified abnormal findings of blood chemistry; I25.10 Atherosclerotic heart disease of native coronary artery without angina pectoris

== ENCOUNTER 2025-02-19 13:09 | Emergency (ER) | payer OTHER ==
[~2025-02-19] VITALS: Wt 67.1 kg
[2025-02-19] VITALS (8 sets, daily range): BP systolic 107–126; BP diastolic 59–79
[~2025-02-19 13:09] MED LIST changes: -Regadenoson 0.4 MG/5 ML SYR IV ONE; +TAB-A-VITE TA400 MCG PO; -Technetium Tc 99M Tetrofosmi 0.23 MG KIT IJ SCH
[2025-02-19] MEDS ORDERED: Lopressor25 MG PO (13:37)
[2025-02-19] MEDS ORDERED: CLOPIDOGREL75 MG PO (13:38)
[2025-02-19] MEDS ORDERED: ATORVASTATIN CA40 M1 PO (13:38)
[2025-02-19 13:43] LABS: MEAN CELL VOLUME 85.0 fl (80.0-94.0); MEAN CORPUSCULAR HGB 25.1 pg (27.0-31.0); MEAN PLATELET VOLUME 9.1 fl (9.6-12.3); NUCLEATED RED BLOOD CELL 0.0 10*3/uL (0.0-0.0); NUCLEATED RED BLOOD CELL 0.2 % (0.0-0.0); PLATELET COUNT AUTOMATED 361 10*3/uL (130-400); RED CELL DISTRI WIDTH 17.1 % (0-14.5)
[2025-02-19 13:45] LABS: BILIRUBIN Negative (Negative); BLOOD Negative (Negative); CLARITY Cloudy (Clear); COLOR Dark Yellow (Yellow); KETONE Trace (Negative); LEUKO ESTERASE Trace (Negative); NITRITE Negative (Negative); PH 7.0 (4.5-8.0); SPECIFIC GRAVITY 1.020 (1.001-1.030); UROBILINOGEN 1.0 E.U./dl (0.0-1.0)
[2025-02-19 13:52] LABS: URINE AMPHETAMINES Positive (1000ng/ml); URINE BARBITURATES Negative (200ng/ml); URINE BENZODIAZEPINES Negative (200ng/ml); URINE CANNABINOIDS (THC) Negative (50ng/ml); URINE COCAINE Negative (300ng/ml); URINE METHADONE Negative (300ng/ml); URINE OPIATES Negative (300ng/ml); URINE PHENCYCLIDINE Negative (25ng/ml)
[2025-02-19 13:56] LABS: ACT PARTIAL THROMBO TIME 21.6 SECONDS (20.0-32.1)
[2025-02-19 13:57] LABS: MANUAL DIFF REFLEX YES
[2025-02-19 14:04] LABS: PLATELET SUFFICIENCY NORMAL (NORMAL)
[2025-02-19 14:04] LABS: RBC 21-30 rbc/hpf (0-2)
[2025-02-19 14:05] LABS: BACTERIA 3+; MUCOUS 2+
[2025-02-19 14:11] LABS: BUN 16 mg/dl (9-23); SGPT/ALT 25 U/L (5-49)
[2025-02-19 14:12] LABS: ETHYL ALCOHOL < 3.0 mg/dl (<3)
[2025-02-19] MEDS ORDERED: SODIUM CHLORIDE 0.9% 0 ML IV ONE (15:26)
[2025-02-19] MEDS ORDERED: SODIUM CHLORIDE 0.9% 500 ML IV ONE (15:28)
== END 2025-02-19 19:00 | disposition left against medical advice (07) ==
LOC: ED 13:09
PROVIDERS: Internal Medicine
DX: T50.901A Poisoning by unspecified drugs, medicaments and biological substances, accidental (unintentional), initial encounter (principal); R06.02 Shortness of breath; D64.9 Anemia, unspecified; J44.9 Chronic obstructive pulmonary disease, unspecified; F17.210 Nicotine dependence, cigarettes, uncomplicated; Z79.899 Other long term (current) drug therapy; Z98.890 Other specified postprocedural states; Y92.89 Other specified places as the place of occurrence of the external cause